=== PATIENT | female | born 1985 | race Caucasian/White ===

== ENCOUNTER 2017-06-17 20:33 | Emergency (ER) | payer MEDICAID ==
[~2017-06-17] VITALS: Ht 162.6 cm; Wt 63.5 kg
[~2017-06-17 20:33] MED LIST: MAG355OR22 PO; PANT40TA4 PO; TRAM50TA2 PO
[2017-06-17 20:37] VITALS: Ht 162.6 cm; Wt 63.5 kg
[2017-06-17] MEDS ORDERED: IBUPROFEN 600 MG TAB PO ONE (21:00)
--- NOTE | 2017-06-17 22:31 | RADRPT ---
PROCEDURE: CT Brain without contrast. CLINICAL INDICATION: Trauma. Headache. TECHNIQUE: A CT of the brain without contrast was performed utilizing axial sections from the skul l base through the vertex. The patient was scanned without intravenous contrast enhancement. Sagitta l and coronal reformatted images were obtained using the data from the axial images. Total exam DLP is 720.23 mGy-cm. CTDIvol is 44.73 mGy. One or more of the following dose reduction techniques we re used: Automated exposure control, adjustment of the mA and/or kV according to patient size, use o f iterative reconstruction technique. COMPARISON: None available FINDINGS: There is normal medina-white matter differentiation. The ventricles and cisterns are normal. There is no intracranial hemorrhage or space-occupying lesion. There is a dense consolidation in the right frontal lobe superiorly medially measuring 0.7 x 0.4 cm. There is no skull fracture or lytic lesion. IMPRESSION: 1. Dense consolidation in the right frontal lobe superiorly medially. This has a benign appearance. Follow-up advised. 2. Otherwise unremarkable noncontrast CT scan of the brain. 3. No intracranial hemorrhage. RPTAT: QQ .Jesus Garcia MD, MD Date Time Electronically viewed and signed by .Jesus Garcia MD, on 06/17/2017 22:31 .R/
[2017-06-17] MEDS ORDERED: IBUP-1542 PO (22:44)
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
[2017-06-17 22:53] VITALS: BP 128/81; PULSE 79; RESP 18; TEMP 98.8
== END 2017-06-17 22:54 | disposition home or self-care (01) ==
LOC: FTE 20:33
DX: S09.90XA Unspecified injury of head, initial encounter (principal); R51 Headache; W18.09XA Striking against other object with subsequent fall, initial encounter; Y92.9 Unspecified place or not applicable
CPT/HCPCS: 70450; Z7502; Z7610

== ENCOUNTER 2017-11-05 13:52 | Emergency (ER) | END 2017-11-05 16:07 | disposition home or self-care (01) ==